=== PATIENT | male | born 1945 | race Caucasian/White ===

== ENCOUNTER 2018-06-29 12:52 | Emergency (ER) | payer MEDICARE, BC ==
[~2018-06-29] VITALS: Ht 177.8 cm; Wt 101.8 kg
[~2018-06-29 12:52] MED LIST: ALTACE10 MG PO; BYSTOLIC5 MG PO; COUMADIN 5MG5 MG/TAB PO; LIPITOR 40MG TA40 MG PO; MOTRIN 200200 MG/TAB PO; ST. JOSEPH81 M2 PO; TYLENOL 325MG325 MG PO
[2018-06-29 13:00] VITALS: TEMP 98.5
[2018-06-29 15:25] VITALS: BP 119/72; PULSE 55
== END 2018-06-29 15:25 | disposition home or self-care (01) ==
LOC: COL.ER 12:52
DX: S06.0X9A Concussion with loss of consciousness of unspecified duration, initial encounter (principal); S51.012A Laceration without foreign body of left elbow, initial encounter; S00.03XA Contusion of scalp, initial encounter; S50.11XA Contusion of right forearm, initial encounter; I10 Essential (primary) hypertension; I25.10 Atherosclerotic heart disease of native coronary artery without angina pectoris; Z23 Encounter for immunization; Z79.82 Long term (current) use of aspirin; W11.XXXA Fall on and from ladder, initial encounter

== ENCOUNTER 2018-07-09 15:35 | Emergency (ER) | payer MEDICARE, BC ==
[2018-07-09 15:43] VITALS: BP 124/69; PULSE 63; TEMP 97.8
== END 2018-07-09 15:47 | disposition home or self-care (01) ==
LOC: COL.ER 15:35
DX: S51.012D Laceration without foreign body of left elbow, subsequent encounter (principal); X58.XXXD Exposure to other specified factors, subsequent encounter

== ENCOUNTER 2019-02-04 21:31 | Emergency (ER) | payer MEDICARE, BC ==
[~2019-02-04] VITALS: Ht 175.3 cm; Wt 99.1 kg
[2019-02-04 21:45] VITALS: BP 131/66; TEMP 97.7
[2019-02-04 23:29] LABS: BASO % 0.5 % (0.0-2.0); EOS # 0.2 (0.0-0.7); EOS % 3.3 % (0-4.0); GRAN # 4.1 (1.4-6.5); GRAN % 55.9 % (42.2-75.2); HEMATOCRIT 38.9 % (42.0-52.0); HEMOGLOBIN 13.9 g/dl (13.5-18.0); LYMPH # 2.3 (1.2-3.4); LYMPH % 30.9 % (20.0-51.0); MEAN CELL VOLUME 92 fl (80.0-100.0); MEAN CORPUSCULAR HEMOGLOBIN 33 pg (27.0-31.0); MEAN CORPUSCULAR HGB CONC 36 g/dl (33.0-37.0); MEAN PLATELET VOLUME 8.9 fl (7.4-10.4); MONO # 0.7 (0.1-0.6); MONO % 9.3 % (1.7-9.3); PLATELET COUNT 140 K/mm3 (130-400); RED BLOOD COUNT 4.23 M/mm3 (4.20-5.60)
[2019-02-04] MEDS ORDERED: NORCO 325 MG-51 TAB PO (23:42)
[2019-02-05] MEDS ORDERED: NORCO 325 MG-51 TAB PO (00:15)
[2019-02-05 00:23] VITALS: PULSE 71
== END 2019-02-05 00:23 | disposition home or self-care (01) ==
LOC: COL.ER 21:31
PROVIDERS: Family Medicine
DX: S76.911A Strain of unspecified muscles, fascia and tendons at thigh level, right thigh, initial encounter (principal); S40.011A Contusion of right shoulder, initial encounter; I25.10 Atherosclerotic heart disease of native coronary artery without angina pectoris; I10 Essential (primary) hypertension; Z79.82 Long term (current) use of aspirin; W10.9XXA Fall (on) (from) unspecified stairs and steps, initial encounter
CPT/HCPCS: J1885

== ENCOUNTER 2021-04-09 16:29 | Emergency (ER) | payer MEDICARE, BC ==
[~2021-04-09] VITALS: Ht 175.3 cm; Wt 96.4 kg
[~2021-04-09 16:29] MED LIST changes: +ALTACE 10MG TAB10 MG PO; -ALTACE10 MG PO; +ASPIRIN 81M81 MG/TA2 PO; +BRILINTA90 MG PO; +LIPITOR 80MG80 MG PO; +NORCO 325 MG-51 TAB PO; -ST. JOSEPH81 M2 PO; +TOPROL XL 25MG25 MG PO
[2021-04-09 16:44] VITALS: TEMP 99.4
[2021-04-09 18:41] LABS: BASO % 0.3 % (0.0-2.0); EOS % 0.2 % (0-4.0); GRAN # 9.6 (1.4-6.5); GRAN % 86.6 % (42.2-75.2); HEMATOCRIT 43.9 % (42.0-52.0); HEMOGLOBIN 15.2 g/dl (13.5-18.0); LYMPH # 0.6 (1.2-3.4); LYMPH % 5.4 % (20.0-51.0); MEAN CELL VOLUME 92 fl (80.0-100.0); MEAN CORPUSCULAR HEMOGLOBIN 32 pg (27.0-31.0); MEAN CORPUSCULAR HGB CONC 35 g/dl (33.0-37.0); MEAN PLATELET VOLUME 9.2 fl (7.4-10.4); MONO # 0.8 (0.1-0.6); MONO % 7.2 % (1.7-9.3); PLATELET COUNT 147 K/mm3 (130-400); RED BLOOD COUNT 4.76 M/mm3 (4.20-5.60); REDCELL DISTRIBUTION WIDTH-CV 13.1 % (11.5-14.5)
[2021-04-09 18:55] LABS: ALANINE AMINOTRANSFERASE 25 U/L (4-49); ALBUMIN 4.2 gm/dL (3.5-5.0); ALKALINE PHOSPHATASE 38 U/L (50-136); ANION GAP 4 mmol/L (7-16); AST,SGOT 28 U/L (15-37); BLOOD UREA NITROGEN 14 mg/dL (9-20); CALCIUM 9.8 mg/dL (8.4-10.2); CARBON DIOXIDE 26 mmol/L (22-30); CHLORIDE 105 mmol/L (98-107); CREATININE, serum 0.77 (0.66-1.25); GLUCOSE 111 mg/dL (74-106); POTASSIUM 4.2 mmol/L (3.4-5.0); SODIUM 135 mmol/L (137-145); TOTAL PROTEIN 7.2 gm/dL (6.4-8.2)
[2021-04-09 19:12] LABS: TROPONIN-I < 0.012 ng/mL (0.000-0.035)
[2021-04-09 20:58] LABS: COLLECTION METHOD CLEAN CATCH
[2021-04-09 21:05] LABS: MUCOUS Present /lpf; PH 5 (5-8); SQUAMOUS EPITHELIAL None Seen /hpf; URINE APPEARANCE Clear; URINE BACTERIA None Seen /hpf; URINE BILIRUBIN Negative (NEGATIVE); URINE BLOOD Negative (NEGATIVE); URINE COLOR Yellow; URINE GLUCOSE Negative (NEGATIVE); URINE KETONE Negative (NEGATIVE); URINE LEUKOCYTE ESTERASE Negative (NEGATIVE); URINE NITRATE Negative (NEGATIVE); URINE PROTEIN(semi-quant) Negative (NEGATIVE); URINE RBC 0-2 /hpf; URINE UROBILINOGEN Negative (NEGATIVE)
[2021-04-09 22:21] VITALS: BP 127/80; PULSE 65
== END 2021-04-09 22:26 | disposition home or self-care (01) ==
LOC: COL.ER 16:29
PROVIDERS: Emergency Medicine
DX: R53.81 Other malaise (principal); R53.83 Other fatigue; M25.50 Pain in unspecified joint; M79.10 Myalgia, unspecified site; Z20.822 Contact with and (suspected) exposure to COVID-19

== ENCOUNTER 2023-06-30 07:47 | Day surgery (SDC) | payer MEDICARE ==
[2023-06-30] VITALS (12 sets, daily range): BP systolic 99–127; BP diastolic 59–87; PULSE 55–66; TEMP 97.8
[~2023-06-30] VITALS: Ht 175.3 cm; Wt 91.2 kg
[2023-06-30 08:36] LABS: HEMOGLOBIN 12.9 g/dl (13.5-18.0); MEAN CELL VOLUME 90 fl (80.0-100.0); MEAN CORPUSCULAR HEMOGLOBIN 32 pg (27-31); MEAN CORPUSCULAR HGB CONC 36 g/dl (33.0-37.0); MEAN PLATELET VOLUME 8.7 fl (7.4-10.4); PLATELET COUNT 141 K/mm3 (130-400); RED BLOOD COUNT 3.99 M/mm3 (4.20-5.60); REDCELL DISTRIBUTION WIDTH-CV 14.1 % (11.5-14.5)
[2023-06-30] MEDS ORDERED: PLAVIX 75MG TAB75 MG PO (08:39)
[2023-06-30] MEDS ORDERED: TOPROL XL 50MG50 MG PO (08:40)
[2023-06-30 08:43] LABS: INR 1.2 (0.8-3.0); PROTHROMBIN TIME 13.5 SECONDS (9.7-12.8)
[2023-06-30] MEDS ORDERED: LIPITOR 80MG80 MG PO (08:44)
[2023-06-30 08:46] LABS: PARTIAL THROMBOPLASTIN TIME 32.8 SECONDS (26.0-37.0)
[2023-06-30] MEDS ORDERED: MULTI VITAMINS1 TAB PO (08:46)
[2023-06-30] MEDS ORDERED: MASON NATURAL2000 IU PO (08:46)
[2023-06-30] MEDS ORDERED: TYLENOL 500MG500 MG PO (08:47)
[2023-06-30 08:54] LABS: CALCIUM 9.6 mg/dL (8.4-10.2); CREATININE, serum 0.8 mg/dL (0.72-1.25); POTASSIUM 4.4 mmol/L (3.5-4.5)
--- NOTE | 2023-06-30 10:02 | NUR ---
Please see merge documentation for record of interventions, vitals and medications administered during left heart cath.
--- NOTE | 2023-06-30 13:39 | NUR ---
All air removed from band in 2-3 ml incriments.No bleeding observed at right radial site.
--- NOTE | 2023-06-30 14:15 | NUR ---
Discharge instructions given to pt.Pt verbalizes understanding.Pt escortedout via wheelchair by this nurse.
== END 2023-06-30 17:33 ==
LOC: COL.CAR 07:47
PROVIDERS: Internal Medicine Cardiovascular Disease
DX: I25.10 Atherosclerotic heart disease of native coronary artery without angina pectoris (principal)
CPT/HCPCS: J1644; J2250; J3010; Q9967

== ENCOUNTER 2023-07-21 18:11 | Inpatient (IN) | payer MEDICARE ==
[~2023-07-21] VITALS: Ht 175.3 cm; Wt 91.0 kg
[~2023-07-21 18:11] MED LIST changes: -ADVIL200 MG PO
[2023-07-21 18:54] LABS: COLLECTION METHOD CLEAN CATCH
[2023-07-21 18:59] LABS: BASO % 0.5 % (0.0-2.0); EOS # 0.1 K/mm3 (0.0-0.7); EOS % 0.6 % (0.0-4.0); GRAN # 5.8 K/mm3 (1.4-6.5); GRAN % 73.3 % (42.2-75.2); LYMPH # 1.4 K/mm3 (1.2-3.4); LYMPH % 17.2 % (20.0-51.0); MEAN CELL VOLUME 94 fl (80.0-100.0); MEAN CORPUSCULAR HEMOGLOBIN 32 pg (27-31); MEAN CORPUSCULAR HGB CONC 34 g/dl (33.0-37.0); MEAN PLATELET VOLUME 8.3 fl (7.4-10.4); MONO # 0.6 K/mm3 (0.1-0.6); MONO % 7.9 % (1.7-9.3); PLATELET COUNT 168 K/mm3 (130-400); RED BLOOD COUNT 3.72 M/mm3 (4.20-5.60)
[2023-07-21 19:01] LABS: HEMATOCRIT 35.1 % (42.0-52.0)
[2023-07-21 19:15] LABS: ALBUMIN 3.6 gm/dL (3.4-4.8); BILIRUBIN,TOTAL 1.2 mg/dL (0.2-1.2); CALCIUM 9.5 mg/dL (8.4-10.2); CREATININE, serum 0.75 mg/dL (0.72-1.25); POTASSIUM 4.1 mmol/L (3.5-4.5); TOTAL PROTEIN 7.1 gm/dL (6.2-8.1)
[2023-07-21 19:31] LABS: URINE APPEARANCE Clear (CLEAR/HAZY); URINE COLOR Yellow (YELLOW)
[2023-07-21 19:32] LABS: PH 6.5 (5.0-8.5); URINE BACTERIA Rare /hpf (NONE SEEN); URINE BLOOD TRACE-LYSED (NEGATIVE); URINE GLUCOSE Negative (NEGATIVE); URINE KETONE Negative (NEGATIVE); URINE NITRATE Negative (NEGATIVE); URINE PROTEIN(semi-quant) Negative (NEGATIVE); URINE UROBILINOGEN 0.2 E.U/dL (0.2-1.0)
--- NOTE | 2023-07-21 20:42 | NUR ---
Vancomycin Initial Dosing Pharmacy Note Ordering provider: Jaime Mims MD Indication/duration: Gram-positive bacteremia, also starting piperacillin/tazobactam extended-infusion 4.5 g every 8 hours LABS: CrCl ~75 mL/min Loading dose: 2 grams Maintenance dose: 1.25 grams every 12 hours Trough goal: 15-20 ug/mL Plan: Start 2g loading dose this evening and then 1250 mg (15mg/kg) every 12 hours. Calculcated trough ~18. No trough ordered at this time.
[2023-07-21 21:30] VITALS: BP_SYST 121
--- NOTE | 2023-07-21 22:00 | NUR ---
PATIENT ARRIVED FROM ED IN STABLE CONDITION. PATIENT DENEIS ANY NEEDS OR COMPLAINTS AT THIS TIME. PATIENTS AT BEDSIDE. PATIENT IV FLUIDS INFUSING. CALL LIGHT WITHIN REACH. INTAKE COMPLETE.
[2023-07-21 22:21] VITALS: BP 121/68; PULSE 76; TEMP 97.9
[2023-07-22] VITALS (13 sets, daily range): BP systolic 98–121; BP diastolic 50–74; PULSE 57–69; TEMP 97.4–98.3
--- NOTE | 2023-07-22 01:50 | NUR ---
PATIENT CALLED FOR RN REQUESTING SOME TYLENOL FOR HIS BACK PAIN.
--- NOTE | 2023-07-22 05:08 | NUR ---
PATIENT ASLEEP. RESTING IN BED, CALL LIGHT WITHIN REACH.
[2023-07-22 06:06] LABS: BASO % 0.4 % (0.0-2.0); EOS % 0.1 % (0.0-4.0); GRAN # 5.6 K/mm3 (1.4-6.5); GRAN % 76.9 % (42.2-75.2); HEMOGLOBIN 10.2 g/dl (13.5-18.0); LYMPH # 0.9 K/mm3 (1.2-3.4); LYMPH % 12.7 % (20.0-51.0); MEAN CELL VOLUME 93 fl (80.0-100.0); MEAN CORPUSCULAR HEMOGLOBIN 33 pg (27-31); MEAN CORPUSCULAR HGB CONC 35 g/dl (33.0-37.0); MEAN PLATELET VOLUME 8.7 fl (7.4-10.4); MONO # 0.7 K/mm3 (0.1-0.6); MONO % 9.4 % (1.7-9.3); PLATELET COUNT 134 K/mm3 (130-400); RED BLOOD COUNT 3.11 M/mm3 (4.20-5.60); REDCELL DISTRIBUTION WIDTH-CV 15.1 % (11.5-14.5)
[2023-07-22 06:12] LABS: CALCIUM 8.2 mg/dL (8.4-10.2); CREATININE, serum 0.72 mg/dL (0.72-1.25); POTASSIUM 4.1 mmol/L (3.5-4.5)
--- NOTE | 2023-07-22 10:14 | NUR ---
PICC line placed by [facility].
--- NOTE | 2023-07-22 10:35 | NUR ---
Initial visit; Patient goes by Sean and thanked for coming by to see him. Patient states he has two brothers who are [employer] as well and in the ministry. He says he is waiting for the to inform him of what is going on with his body but thanked for offering to keep him in her prayers since he had stated he had lots of prayer already.
--- NOTE | 2023-07-22 12:32 | NUR ---
Patient to laborer yard via bed with CHERELLE Wiley. Patient has remained NPO. IVF not hung at this time as CHERELLE Wiley wishes to start IVF in laborer yard.
[2023-07-22] MEDS ORDERED: ADVIL200 MG PO (13:50)
--- NOTE | 2023-07-22 13:50 | NUR ---
Pt returns to room from [facility]. VSS- see flowsheet. A/O x 4. Denies pain or needs. Call light within reach. at bedside. Plan for ID consult this afternoon. Per Viviana Brown RN- pt's outpatient echo cancelled- this was communicated with patient.
--- NOTE | 2023-07-22 15:26 | NUR ---
Recovery Assistant met with patient to discuss discharge planning. Patient lives in [place] with his , Ama (ph#[phone]) and sees Dr. Cordova for primary care. [facility] and reported no difficulties in affording them. Patient does not use any DME and is independent with [facility]. Patient stated his is his DPOA-HC. Patient plans to return home at time of discharge. Discharge Plan: Home
--- NOTE | 2023-07-22 17:00 | NUR ---
Per Dr. Ortiz, patient will be transferred to another facility that has an inhouse ID physician. Dr. Crockett was consulted by the [facility] hospitalist but the consult has not been completed at this time. Per Dr. Ortiz, ID consult is cancelled due to tranfer. Patient notified of pending transfer and cancellation of ID consult. Ama also updated via phone.
--- NOTE | 2023-07-22 17:23 | NUR ---
Tylenol administered po for c/o low left back pain.
--- NOTE | 2023-07-22 19:30 | NUR ---
Per Kelvin Buckley RN (Geospatial Technician)- [facility] has accepted the patient and we are currently awaiting a room assignment. Patient notified. Report given to CHERELLE Heaton and she will communicate with spouse once room assignment has been communicated and transfer time is set up.
[2023-07-22 19:57] LABS: INR 1.3 (0.8-3.0); PROTHROMBIN TIME 14.6 SECONDS (9.7-12.8)
[2023-07-22 20:02] LABS: CALCIUM 8.1 mg/dL (8.4-10.2); CREATININE, serum 0.73 mg/dL (0.72-1.25); POTASSIUM 3.8 mmol/L (3.5-4.5)
--- NOTE | 2023-07-22 21:14 | NUR ---
TRANSFERRING TO [facility] ETA [id number]
--- NOTE | 2023-07-22 22:00 | NUR ---
PATIENT PICKED UP BY EMS FOR TRANSPORT. PATIENT LEFT IN STABLE CONDITION. PATIENTS HAS ALL OF HIS BELONGINGS WITH HER. PATIENT LEFT WITH [facility] INFUSING, EMS AWARE.
--- NOTE | 2023-07-22 22:11 | NUR ---
REPORT GIVEN TO ANGELICA AT [facility]. CALL BACK NUMBER GIVEN
== END 2023-07-22 22:12 | disposition short-term general hospital (02) | DRG 872 ==
LOC: COL.ER 18:11 → MEDICAL 19:41
PROVIDERS: Family Medicine; Nurse Practitioner Family; ADMIT Internal Medicine
DX: R78.81 Bacteremia (principal); E87.1 Hypo-osmolality and hyponatremia; I25.10 Atherosclerotic heart disease of native coronary artery without angina pectoris; I05.9 Rheumatic mitral valve disease, unspecified; I10 Essential (primary) hypertension; E78.5 Hyperlipidemia, unspecified; D64.9 Anemia, unspecified
CPT/HCPCS: C1751; J0692; J1650; J2543; J2704; J3370; J7030; J7040; J7050

== ENCOUNTER → 2023-07-21 | Outpatient (CLI) | payer MEDICARE ==
[~2023-07-21] MED LIST changes: +ADVIL200 MG PO; +MASON NATURAL2000 IU PO; +MULTI VITAMINS1 TAB PO; +PLAVIX 75MG TAB75 MG PO; +TOPROL XL 50MG50 MG PO; +TYLENOL 500MG500 MG PO
== END ==
LOC: ZCOL.LAB 21:47
DX: Z01.89 Encounter for other specified special examinations (principal)

== ENCOUNTER 2023-09-25 14:55 | Outpatient (RCR) | payer MEDICARE ==
[~2023-09-25 14:55] MED LIST changes: +ADVIL200 MG PO
== END 2023-09-27 | disposition home or self-care (01) ==
LOC: COL.CR
DX: Z48.812 Encounter for surgical aftercare following surgery on the circulatory system (principal); Z95.2 Presence of prosthetic heart valve; Z95.1 Presence of aortocoronary bypass graft; I25.10 Atherosclerotic heart disease of native coronary artery without angina pectoris; I33.0 Acute and subacute infective endocarditis

== ENCOUNTER → 2023-10-28 | Outpatient (RCR) | payer MEDICARE | END | disposition home or self-care (01) | LOC: COL.CR | DX: Z48.812 Encounter for surgical aftercare following surgery on the circulatory system (principal); Z95.2 Presence of prosthetic heart valve; Z95.1 Presence of aortocoronary bypass graft; I25.10 Atherosclerotic heart disease of native coronary artery without angina pectoris ==

== ENCOUNTER 2023-11-25 15:41 | Outpatient (RCR) | payer MEDICARE | END 2023-11-26 | disposition home or self-care (01) | LOC: COL.CR | DX: Z48.812 Encounter for surgical aftercare following surgery on the circulatory system (principal); Z95.2 Presence of prosthetic heart valve; Z95.1 Presence of aortocoronary bypass graft; I25.10 Atherosclerotic heart disease of native coronary artery without angina pectoris; I33.0 Acute and subacute infective endocarditis ==